=== PATIENT | female | born 1975 | race Hispanic/Latino ===

== ENCOUNTER 2017-03-27 12:28 | Emergency (ER) | payer SELFPAY ==
[2017-03-27] MEDS ORDERED: LIDOCAINE VISCOUS 2% PO ONE (19:55)
[2017-03-27] MEDS ORDERED: PEPCID PO ONE (19:55)
[2017-03-27] MEDS ORDERED: ALUM-MAG HYDROX-SIMETH 200-200-20MG/5ML PO ONE (19:55)
[2017-03-27] MEDS ORDERED: TYLENOL #3 PO ONE (19:55)
--- NOTE | 2017-03-27 20:33 | Emergency Department Report ---
ED ENT HPI - General Chief complaint: Earache Stated complaint: STOMACH PAIN, EAR PAIN Time Seen by Provider: 03/27/17 19:45 Source: patient Mode of arrival: Ambulatory Limitations: No Limitations - History of Present Illness Initial comments: 41-year-old female past medical history asthma, GERD, smoker presents with complaint of 5 days of earache sore throat and some malaise. Patient is awake alert and oriented 3 states her right ear is aching her and she has had some sore throat. No trismus and no drooling no audible wheezing or stridor noted. Patient is fully lucid nontoxic appearing. States she has been taking ibuprofen with minimal relief of her discomfort. 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 Patient states she has had some sick contacts at home with upper respiratory symptoms this week. Patient denies chest pain palpitations nausea vomiting abdominal pain. Denies dysuria or hematuria or increased urinary frequency. Patient also states that she has had slight asthma exacerbation but is feeling somewhat better now. MD complaint: sore throat, ear pain, other (cough) Onset/Timin -: days(s) Location: R ear Severity: moderate Severity scale (0 -10): 6 Quality: aching Consistency: constant Improves with: none Worsens with: none - Related Data Previous Rx's Medication Instructions Recorded Last Taken Type Quetiapine Fumarate [Seroquel] 100 mg PO HS #30 tablet 11/14/15 Unknown Rx Venlafaxine Xr [Effexor Xr] 75 mg PO QDAY #30 capsule 11/14/15 Unknown Rx Acetaminophen/Codeine [Tylenol 1 tab PO Q6H PRN #15 tab 03/27/17 Unknown Rx /Codeine # 3 tab] Albuterol Sulfate [Ventolin Hfa] 1 gm IH Q4H PRN #1 hfa.aer.ad 03/27/17 Unknown Rx Amoxicillin/K Clav Tab [Augmentin 1 tab PO Q12HR #20 tab 03/27/17 Unknown Rx 875 mg] Dextromethorphan/Benzocaine 1 each PO Q4H PRN #1 box 03/27/17 Unknown Rx [Cepacol Sorethroat-Cough Graeme] Famotidine [Pepcid] 20 mg PO BID PRN #30 tablet 03/27/17 Unknown Rx Allergies Allergy/AdvReac Type Severity Reaction Status Date / Time NSAIDS (Non-Steroidal Allergy Bleeding Verified 05/23/15 11:29 Anti-Inflamma prednisone AdvReac irritable; Verified 05/23/15 11:29 [facility] ED Dental HPI - General Chief complaint: Earache Stated complaint: STOMACH PAIN, EAR PAIN Time Seen by Provider: 03/27/17 19:45 Source: patient Mode of arrival: Ambulatory Limitations: No Limitations - Related Data Previous Rx's Medication Instructions Recorded Last Taken Type Quetiapine Fumarate [Seroquel] 100 mg PO HS #30 tablet 11/14/15 Unknown Rx Venlafaxine Xr [Effexor Xr] 75 mg PO QDAY #30 capsule 11/14/15 Unknown Rx Acetaminophen/Codeine [Tylenol 1 tab PO Q6H PRN #15 tab 03/27/17 Unknown Rx /Codeine # 3 tab] Albuterol Sulfate [Ventolin Hfa] 1 gm IH Q4H PRN #1 hfa.aer.ad 03/27/17 Unknown Rx Amoxicillin/K Clav Tab [Augmentin 1 tab PO Q12HR #20 tab 03/27/17 Unknown Rx 875 mg] Dextromethorphan/Benzocaine 1 each PO Q4H PRN #1 box 03/27/17 Unknown Rx [Cepacol Sorethroat-Cough Graeme] Famotidine [Pepcid] 20 mg PO BID PRN #30 tablet 03/27/17 Unknown Rx Allergies Allergy/AdvReac Type Severity Reaction Status Date / Time NSAIDS (Non-Steroidal Allergy Bleeding Verified 05/23/15 11:29 Anti-Inflamma prednisone AdvReac irritable; Verified 05/23/15 11:29 [facility] ED Review of Systems ROS: Stated complaint: STOMACH PAIN, EAR PAIN Other details as noted in HPI Constitutional: malaise. denies: chills, fever Eyes: denies: eye pain, eye discharge, vision change ENT: ear pain, throat pain Respiratory: denies: cough, shortness of breath, wheezing Cardiovascular: denies: chest pain, palpitations Endocrine: no symptoms reported Gastrointestinal: denies: abdominal pain, nausea, diarrhea Genitourinary: denies: urgency, dysuria, discharge Musculoskeletal: denies: back pain, joint swelling, arthralgia Skin: denies: rash, lesions Neurological: denies: headache, weakness, paresthesias Psychiatric: denies: anxiety, depression Hematological/Lymphatic: denies: easy bleeding, easy bruising ED Past Medical Hx - Past Medical History Previous Medical History?: Yes Hx Congestive Heart Failure: No Hx Diabetes: No Hx GERD: Yes Hx Headaches / Migraines: Yes Hx Psychiatric Treatment: Yes (PTSD, depression, anxiety, panic attacks) Hx Asthma: Yes Hx COPD: No Additional medical history: PUD. HX of MRSA (skin) 3 yrs ago - Surgical History Past Surgical History?: Yes Additional Surgical History: tubal ligation, tonsillectomy/adenoidectomy - Social History Smoking Status: Current Every Day Smoker - Medications Home Medications: Home Medications Medication Instructions Recorded Confirmed Last Taken Type Quetiapine Fumarate [Seroquel] 100 mg PO HS #30 tablet 11/14/15 Unknown Rx Venlafaxine Xr [Effexor Xr] 75 mg PO QDAY #30 capsule 11/14/15 Unknown Rx Acetaminophen/Codeine [Tylenol 1 tab PO Q6H PRN #15 tab 03/27/17 Unknown Rx /Codeine # 3 tab] Albuterol Sulfate [Ventolin Hfa] 1 gm IH Q4H PRN #1 hfa.aer.ad 03/27/17 Unknown Rx Amoxicillin/K Clav Tab [Augmentin 1 tab PO Q12HR #20 tab 03/27/17 Unknown Rx 875 mg] Dextromethorphan/Benzocaine 1 each PO Q4H PRN #1 box 03/27/17 Unknown Rx [Cepacol Sorethroat-Cough Graeme] Famotidine [Pepcid] 20 mg PO BID PRN #30 tablet 03/27/17 Unknown Rx ED Physical Exam - General Limitations: No Limitations General appearance: alert, in no apparent distress - Head Head exam: Present: atraumatic, normocephalic - Eye Eye exam: Present: normal appearance, PERRL, EOMI - ENT ENT exam: Present: mucous membranes moist - Expanded ENT Exam Expanded TM/Canal exam: Erythema: Right TM (right tympanic membrane erythematous and bulging no perforation. No clinical mastoiditis on external exam), Bulging: Right TM Throat exam: Positive: normal inspection - Neck Neck exam: Present: normal inspection, full ROM - Respiratory Respiratory exam: Present: normal lung sounds bilaterally (lungs clear to auscultation bilaterally). Absent: respiratory distress - Cardiovascular Cardiovascular Exam: Present: regular rate, normal rhythm. Absent: systolic murmur, diastolic murmur, rubs, gallop - GI/Abdominal GI/Abdominal exam: Present: soft, normal bowel sounds - Extremities Exam Extremities exam: Present: normal inspection - Back Exam Back exam: Present: normal inspection - Neurological Exam Neurological exam: Present: alert, oriented X3 - Psychiatric Psychiatric exam: Present: normal affect, normal mood - Skin Skin exam: Present: warm, dry, intact, normal color. Absent: rash ED Course Vital Signs 03/27/17 03/27/17 14:27 20:46 Temperature 98.9 F 98.0 F Pulse Rate 102 H 98 H Respiratory 20 18 Rate Blood Pressure 153/90 Blood Pressure 146/81 [Left] O2 Sat by Pulse 100 99 Oximetry ED Medical Decision Making - Medical Decision Making A/P: Right-sided otitis media, refill on asthma medicine 1-Augmentin 10 day course, Tylenol 3 when necessary, patient given dose of decadron in ED. Refill on Ventolin inhaler 2-Mucinex when necessary 3-flu swab negative, strep swab negative. Patient's vital signs stable for discharge. I gave her strict precautions to return to the ED she experiences generalized body aches inability to tolerate by mouth with lethargy or high fevers despite Tylenol or antipyretic use. Critical care attestation.: If time is entered above; I have spent that time in minutes in the direct care of this critically ill patient, excluding procedure time. ED Disposition Clinical Impression: Medication refill Otitis media Qualifiers: Otitis media type: suppurative Chronicity: acute Laterality: right Recurrence: not specified as recurrent Spontaneous tympanic membrane rupture: without spontaneous rupture Qualified Code(s): H66.001 - Acute suppurative otitis media without spontaneous rupture of ear drum, right ear Disposition: DC-01 TO HOME OR SELFCARE Is pt being admited?: No Does the pt Need Aspirin: No Condition: Stable Instructions: Reactive Airways Disease (ED), Otitis Media (ED) Prescriptions: Acetaminophen/Codeine [Tylenol /Codeine # 3 tab] 1 tab PO Q6H PRN #15 tab PRN Reason: Pain Albuterol Sulfate [Ventolin Hfa] 1 gm IH Q4H PRN #1 hfa.aer.ad PRN Reason: Cough Amoxicillin/K Clav Tab [Augmentin 875 mg] 1 tab PO Q12HR #20 tab Dextromethorphan/Benzocaine [Cepacol Sorethroat-Cough Graeme] 1 each PO Q4H PRN #1 box PRN Reason: Sore Throat Famotidine [Pepcid] 20 mg PO BID PRN #30 tablet PRN Reason: Indigestion Referrals: [facility] [Outside] - 3-[address] [facility] [Outside] - 3-5 Days CHALINO STATON MD [Staff Physician] - 3-5 Days Forms: Work/School Release Form(ED), Accompanied Note Time of Disposition: 21:27
[2017-03-27] MEDS ORDERED: AUGMENTIN 875 MG PO ONE (20:42)
[2017-03-27 20:47] VITALS: BP 146/81
[2017-03-27] MEDS ORDERED: DECADRON IM ONE (21:21)
[2017-03-27] MEDS ORDERED: NORCO 5/325 PO ONE (21:22)
== END 2017-03-27 21:48 | disposition home or self-care (01) ==
LOC: ED 12:28
DX: H66.001 Acute suppurative otitis media without spontaneous rupture of ear drum, right ear (principal); K21.9 Gastro-esophageal reflux disease without esophagitis; J45.909 Unspecified asthma, uncomplicated; F43.10 Post-traumatic stress disorder, unspecified; F32.9 Major depressive disorder, single episode, unspecified; F41.9 Anxiety disorder, unspecified; F17.200 Nicotine dependence, unspecified, uncomplicated; Z98.51 Tubal ligation status
CPT/HCPCS: 87116; 87400; 87430; 96372; 99283; J1100

== ENCOUNTER 2017-08-15 22:18 | Emergency (ER) | payer OTHER ==
[2017-08-16] MEDS ORDERED: AUGMENTIN 875 MG PO ONE (06:01)
--- NOTE | 2017-08-16 06:14 | Emergency Department Report ---
ED ENT HPI - General Chief complaint: Earache Stated complaint: RIGHT EARACHE Time Seen by Provider: 08/16/17 06:00 Source: patient Mode of arrival: Ambulatory Limitations: No Limitations - History of Present Illness Initial comments: 41-year-old female past medical history PTSD depression and anxiety panic attacks asthma GERD headaches migraines polysubstance abuse presents with complaint of severe right-sided earache. Patient states that she went swimming last week and got water trapped in her urine and has developed persistent pain in right ear last several days. Both her daughter and her son have similar symptoms. Denies fevers chills nausea or vomiting. Patient states she has been taking ibuprofen with minimal to no relief of her pain. Awake alert and oriented 3. Appears very uncomfortable and I write secondary to pain. Denies photo phobia or nuchal rigidity. States she has had some slight drainage from right ear MD complaint: ear pain Onset/Timin -: days(s) Location: R ear Severity: moderate Severity scale (0 -10): 7 Quality: aching Consistency: constant Context- Ear: recent swimming Associated Symptoms: discharge from ear - Related Data Previous Rx's Medication Instructions Recorded Last Taken Type Quetiapine Fumarate [Seroquel] 100 mg PO HS #30 tablet 11/14/15 Unknown Rx Venlafaxine Xr [Effexor Xr] 75 mg PO QDAY #30 capsule 11/14/15 Unknown Rx Acetaminophen/Codeine [Tylenol 1 tab PO Q6H PRN #15 tab 03/27/17 Unknown Rx /Codeine # 3 tab] Albuterol Sulfate [Ventolin Hfa] 1 gm IH Q4H PRN #1 hfa.aer.ad 03/27/17 Unknown Rx Amoxicillin/K Clav Tab [Augmentin 1 tab PO Q12HR #20 tab 03/27/17 Unknown Rx 875 mg] Dextromethorphan/Benzocaine 1 each PO Q4H PRN #1 box 03/27/17 Unknown Rx [Cepacol Sorethroat-Cough Graeme] Famotidine [Pepcid] 20 mg PO BID PRN #30 tablet 03/27/17 Unknown Rx Acetaminophen/Codeine [Tylenol 1 tab PO Q6H PRN #15 tab 08/16/17 Unknown Rx /Codeine # 3 tab] Amoxicillin/Potassium Clav 1 each PO BID #20 tablet 08/16/17 Unknown Rx [Augmentin 875-125 Tablet] Tobramycin 0.3% [Tobrex] 1 drop OTIC Q4H #1 bottle 08/16/17 Unknown Rx Allergies Allergy/AdvReac Type Severity Reaction Status Date / Time NSAIDS (Non-Steroidal Allergy Bleeding Verified 05/23/15 11:29 Anti-Inflamma prednisone AdvReac irritable; Verified 05/23/15 11:29 [facility] ED Dental HPI - General Chief complaint: Earache Stated complaint: RIGHT EARACHE Time Seen by Provider: 08/16/17 06:00 Source: patient Mode of arrival: Ambulatory Limitations: No Limitations - Related Data Previous Rx's Medication Instructions Recorded Last Taken Type Quetiapine Fumarate [Seroquel] 100 mg PO HS #30 tablet 11/14/15 Unknown Rx Venlafaxine Xr [Effexor Xr] 75 mg PO QDAY #30 capsule 11/14/15 Unknown Rx Acetaminophen/Codeine [Tylenol 1 tab PO Q6H PRN #15 tab 03/27/17 Unknown Rx /Codeine # 3 tab] Albuterol Sulfate [Ventolin Hfa] 1 gm IH Q4H PRN #1 hfa.aer.ad 03/27/17 Unknown Rx Amoxicillin/K Clav Tab [Augmentin 1 tab PO Q12HR #20 tab 03/27/17 Unknown Rx 875 mg] Dextromethorphan/Benzocaine 1 each PO Q4H PRN #1 box 03/27/17 Unknown Rx [Cepacol Sorethroat-Cough Graeme] Famotidine [Pepcid] 20 mg PO BID PRN #30 tablet 03/27/17 Unknown Rx Acetaminophen/Codeine [Tylenol 1 tab PO Q6H PRN #15 tab 08/16/17 Unknown Rx /Codeine # 3 tab] Amoxicillin/Potassium Clav 1 each PO BID #20 tablet 08/16/17 Unknown Rx [Augmentin 875-125 Tablet] Tobramycin 0.3% [Tobrex] 1 drop OTIC Q4H #1 bottle 08/16/17 Unknown Rx Allergies Allergy/AdvReac Type Severity Reaction Status Date / Time NSAIDS (Non-Steroidal Allergy Bleeding Verified 05/23/15 11:29 Anti-Inflamma prednisone AdvReac irritable; Verified 05/23/15 11:29 [facility] ED Review of Systems ROS: Stated complaint: RIGHT EARACHE Other details as noted in HPI Constitutional: denies: chills, fever Eyes: denies: eye pain, eye discharge, vision change ENT: ear pain. denies: throat pain Respiratory: denies: cough, shortness of breath, wheezing Cardiovascular: denies: chest pain, palpitations Endocrine: no symptoms reported Gastrointestinal: denies: abdominal pain, nausea, diarrhea Genitourinary: denies: urgency, dysuria, discharge Musculoskeletal: denies: back pain, joint swelling, arthralgia Skin: denies: rash, lesions Neurological: denies: headache, weakness, paresthesias Psychiatric: denies: anxiety, depression Hematological/Lymphatic: denies: easy bleeding, easy bruising ED Past Medical Hx - Past Medical History Previous Medical History?: Yes Hx Congestive Heart Failure: No Hx Diabetes: No Hx GERD: Yes Hx Headaches / Migraines: Yes Hx Psychiatric Treatment: Yes (PTSD, depression, anxiety, panic attacks) Hx Asthma: Yes Hx COPD: No Additional medical history: PUD. HX of MRSA (skin) 3 yrs ago - Surgical History Past Surgical History?: Yes Additional Surgical History: tubal ligation, tonsillectomy/adenoidectomy - Social History Smoking Status: Current Every Day Smoker Substance Use Type: None - Medications Home Medications: Home Medications Medication Instructions Recorded Confirmed Last Taken Type Quetiapine Fumarate [Seroquel] 100 mg PO HS #30 tablet 11/14/15 Unknown Rx Venlafaxine Xr [Effexor Xr] 75 mg PO QDAY #30 capsule 11/14/15 Unknown Rx Acetaminophen/Codeine [Tylenol 1 tab PO Q6H PRN #15 tab 03/27/17 Unknown Rx /Codeine # 3 tab] Albuterol Sulfate [Ventolin Hfa] 1 gm IH Q4H PRN #1 hfa.aer.ad 03/27/17 Unknown Rx Amoxicillin/K Clav Tab [Augmentin 1 tab PO Q12HR #20 tab 03/27/17 Unknown Rx 875 mg] Dextromethorphan/Benzocaine 1 each PO Q4H PRN #1 box 03/27/17 Unknown Rx [Cepacol Sorethroat-Cough Graeme] Famotidine [Pepcid] 20 mg PO BID PRN #30 tablet 03/27/17 Unknown Rx Acetaminophen/Codeine [Tylenol 1 tab PO Q6H PRN #15 tab 08/16/17 Unknown Rx /Codeine # 3 tab] Amoxicillin/Potassium Clav 1 each PO BID #20 tablet 08/16/17 Unknown Rx [Augmentin 875-125 Tablet] Tobramycin 0.3% [Tobrex] 1 drop OTIC Q4H #1 bottle 08/16/17 Unknown Rx ED Physical Exam - General Limitations: No Limitations General appearance: alert, in no apparent distress - Head Head exam: Present: atraumatic, normocephalic - Eye Eye exam: Present: normal appearance - ENT ENT exam: Present: mucous membranes moist - Expanded ENT Exam Expanded TM/Canal exam: Erythema: Right TM (significant right tympanic membrane injection and slight effusion and external ear canal. No clinical mastoiditis) , Bulging: Right TM, Effusion: Right TM, Canal Discharge: Right TM (light serous discharge from right external ear canal) - Neck Neck exam: Present: normal inspection - Respiratory Respiratory exam: Present: normal lung sounds bilaterally. Absent: respiratory distress - Cardiovascular Cardiovascular Exam: Present: regular rate, normal rhythm. Absent: systolic murmur, diastolic murmur, rubs, gallop - GI/Abdominal GI/Abdominal exam: Present: soft, normal bowel sounds - Extremities Exam Extremities exam: Present: normal inspection - Back Exam Back exam: Present: normal inspection - Neurological Exam Neurological exam: Present: alert, oriented X3 - Psychiatric Psychiatric exam: Present: normal affect, normal mood - Skin Skin exam: Present: warm, dry, intact, normal color. Absent: rash ED Course Vital Signs 08/15/17 22:45 Temperature 99.0 F Pulse Rate 95 H Respiratory 14 Rate Blood Pressure 123/67 O2 Sat by Pulse 98 Oximetry ED Medical Decision Making - Medical Decision Making A/P: Acute otitis media and externa right ear 1-empiric treatment with Augmentin 10 day course. overall hearing is intact and there is no clearly visible tympanic membrane rupture on exam. No clinical mastoiditis. 2-Tylenol 3 when necessary short course 3-tobramycin drops right ear 4-follow-up with primary care and ENT Critical care attestation.: If time is entered above; I have spent that time in minutes in the direct care of this critically ill patient, excluding procedure time. ED Disposition Clinical Impression: Otitis media Qualifiers: Otitis media type: suppurative Chronicity: acute Laterality: right Recurrence: not specified as recurrent Spontaneous tympanic membrane rupture: without spontaneous rupture Qualified Code(s): H66.001 - Acute suppurative otitis media without spontaneous rupture of ear drum, right ear Otitis externa Qualifiers: Otitis externa type: swimmer's ear Chronicity: acute Laterality: right Qualified Code(s): H60.331 - Swimmer's ear, right ear Disposition: DC- TO HOME OR SELFCARE Is pt being admited?: No Does the pt Need Aspirin: No Condition: Stable Instructions: Otitis Externa (ED), Otitis Media (ED) Prescriptions: Acetaminophen/Codeine [Tylenol /Codeine # 3 tab] 1 tab PO Q6H PRN #15 tab PRN Reason: Pain Amoxicillin/Potassium Clav [Augmentin 875-125 Tablet] 1 each PO BID #20 tablet Tobramycin 0.3% [Tobrex] 1 drop OTIC Q4H #1 bottle Referrals: [facility] [Provider Group] - 3-5 Days [facility]Provider [facility] - 3-5 Days [facility] [Provider Group] - 3-5 Days Forms: Work/School Release Form(ED) Time of Disposition: 06:26
[2017-08-16] MEDS: NORCO 5/325 PO ONE ×2 (06:30→06:58)
[2017-08-16 07:01] VITALS: BP 122/68
== END 2017-08-16 07:03 | disposition home or self-care (01) ==
LOC: ED 22:18
DX: H66.91 Otitis media, unspecified, right ear (principal); H60.91 Unspecified otitis externa, right ear; K21.9 Gastro-esophageal reflux disease without esophagitis; G43.909 Migraine, unspecified, not intractable, without status migrainosus; J45.909 Unspecified asthma, uncomplicated; F17.200 Nicotine dependence, unspecified, uncomplicated; F32.2 Major depressive disorder, single episode, severe without psychotic features; Z98.51 Tubal ligation status; Z88.6 Allergy status to analgesic agent; Z88.8 Allergy status to other drugs, medicaments and biological substances
CPT/HCPCS: 99282